=== PATIENT | female | born 1960 | race Caucasian/White ===

== ENCOUNTER 2021-06-09 02:48 | Emergency (ER) | payer OTHER ==
--- NOTE | ~2021-06-09 | EMS ---
[address] [address] EMS Patient Care Report Name: NELLIE BARKSDALE [id number] Admission: 06/09/21 Attend Phys: Discharge: Date of : 62 Report #: [id number] THIS REPORT FOR: //name// Report Transmitted: 06/09/2021 03:51 EMS Care Summary [employer] [facility] Incident [id number] @ 06/09/2021 01:49 Incident Location [address] [place] [address] Patient ZUHAIR VALLEJO Female, 60 Years 1960 Patient Address [address] [place] [address] Patient History Neuropathy,Chronic Pain,Back Pain (Chronic),Type 2 Diabetes, Patient Allergies Codeine,Cipro, Chief Complaint Chronic Back PAin Disposition Transported No Lights/[facility] Dispatch Reason Back Pain (Non-Traumatic) Transported To [facility] Narrative Med 1 and Engine 1 were dispatched for a [age] ear old female is c/o of lower lumbar pain, leg pain and hip pain. We have transported the patient several times this week for the same complaint. Patient has gone to [facility] but wants to go to ta different hospital this time because [facility] did not give her the pain medication she wanted. She is AOx3, has strong, regular, bilateral radial pulses. Patient rates her pain a 10/10. EMS [address] [place] [address] EMS Patient Care Report Name: NELLIE BARKSDALE Room: [facility] [place].#: [id number] Admission: 06/09/21 Attend Phys: Discharge: Date of : 62 Report #: [id number] crew was on scene for approximately a half an hour explaining to her instead of going to different hospitals to receive care it is best to stick to one hospital for continuity of care. Patient just became agitated and began yelling at the whole crew. She lives with her father and her father told her to call her PCP because she needs to have a hip replacement that is causing all this pain. But the patient refused and stated," If you do not transport me my PCP will be furious with you. Her PCP Dr. Mansfield and he is going to call me and chew me out for not giving her pain medications." I told her that would be a great idea and I would be back on shift Thursday. Patient was assisted to the stretcher and secured via seatbelts. Patient was moved to the ambulance without incident. Med 1 went en route to [facility]. Patient's vitals were obtained and patient was placed on the hall monitor. It shown NSR. Patient was monitored through out transport with no change. Hospital report was given via radio with no questions or orders requested or received. Med 1 arrived at the hospital. Patient was moved into the Triage area via stretcher and placed into a wheel chair and patient care was transferred to ER staff. Med 1 returned back into service. [id number] KShook Initial Vitals @02:20P: 111,R: 18,BP: 140/90,Pain: 10/10,GCS: 15,SpO2: 97,Revised Trauma: 12, @02:56P: 86,R: 18,BP: 144/84,Pain: 10/10,GCS: 15,SpO2: 98,Revised Trauma: 12, Assessments @02:07MENTAL:No Abnormalities,SKIN:No Abnormalities,HEENT:Head/Face: No Abnormalities,Eyes: No Abnormalities,Neck/Airway: No Abnormalities,LUNG SOUNDS:ABDOMEN:PELVIS//GI:EXTREMITIES:Left Arm: No Abnormalities,Right Arm: No Abnormalities,Left Leg: No Abnormalities,Right Leg: No Abnormalities,PULSE:NEURO:No Abnormalities, Impression Back Pain Timeline 01:49,Call Received 01:49,Dispatched 01:49,En Route 01:54,On Scene 01:55,At Patient 02:20,BP: 140/90 M,PULSE: 111,RR: 18 R,SPO2: 97 Ox,ETCO2: ,BG: ,PAIN: 10,GCS: [place] [address] EMS Patient Care Report Name: NELLIE BARKSDALE [facility] [id number] Admission: 06/09/21 Attend Phys: Discharge: Date of : 62 Report #: [id number] 15, 02:21,Depart Scene 02:40,At Destination 02:56,BP: 144/84 M,PULSE: 86,RR: 18 R,SPO2: 98 Ox,ETCO2: ,BG: ,PAIN: 10,GCS: 15, 03:08,Call Closed 03:08,In District Disclaimer v1.1 Copyright 2020 [employer] This EMS Care Summary contains data elements from the applicable legal record (which may be displayed differently). It is designed to provide pertinent information for the following purposes: continuity of care, clinical quality, and state data reporting. The complete legal record is available to ED staff and administrators of the receiving hospital in [employer] Patient Tracker. All data is provided "as is."
== END 2021-06-09 03:11 | disposition left against medical advice (07) ==
LOC: M.ERS 02:48
DX: Z53.21 Procedure and treatment not carried out due to patient leaving prior to being seen by health care provider (principal)